=== PATIENT | male | born 1980 | race African-American/Black ===

== ENCOUNTER 2025-08-02 11:27 | Emergency (ER) | payer OTHER, SELFPAY ==
[~2025-08-02] VITALS: Ht 177.8 cm; Wt 63.9 kg
[2025-08-02 11:29] VITALS: BP 111/76; TEMP 98.5; O2SAT 98
[2025-08-02 16:18] LABS: AMPHETAMINES LEVEL URINE NEGATIVE (NEGATIVE); BARBITURATES URINE NEGATIVE (NEGATIVE); BENZODIAZEPINES URINE NEGATIVE (NEGATIVE); CANNABINOIDS URINE NEGATIVE (NEGATIVE); COCAINE METABOLITE URINE NEGATIVE (NEGATIVE); METHADONE URINE NEGATIVE (NEGATIVE); OPIATES URINE NEGATIVE (NEGATIVE); PHENCYCLIDINE URINE NEGATIVE (NEGATIVE)
== END 2025-08-02 16:42 | disposition left against medical advice (07) ==
LOC: M ED 11:27
DX: K62.89 Other specified diseases of anus and rectum (principal); F90.9 Attention-deficit hyperactivity disorder, unspecified type; Z53.9 Procedure and treatment not carried out, unspecified reason

== ENCOUNTER 2025-08-02 17:15 | Inpatient (IN) | payer OTHER, SELFPAY ==
[~2025-08-02] VITALS: Ht 177.8 cm; Wt 64.0 kg
[2025-08-02 18:05] LABS: PLATELET COUNT, AUTOMATED 297 10^3/uL (150-450)
[2025-08-02 18:24] LABS: AMPHETAMINES LEVEL URINE NEGATIVE (NEGATIVE); BARBITURATES URINE NEGATIVE (NEGATIVE); BENZODIAZEPINES URINE NEGATIVE (NEGATIVE); CANNABINOIDS URINE NEGATIVE (NEGATIVE); COCAINE METABOLITE URINE NEGATIVE (NEGATIVE); METHADONE URINE NEGATIVE (NEGATIVE); OPIATES URINE NEGATIVE (NEGATIVE); PHENCYCLIDINE URINE NEGATIVE (NEGATIVE)
[2025-08-02 18:28] LABS: ALT/SGPT 99 U/L (7.0-40); AST/SGOT 44 U/L (<34); CALCIUM LEVEL 8.8 MG/DL (8.5-10.1); CARBON DIOXIDE LEVEL 28 MMOL/L (20-31); CHLORIDE LEVEL 103 MMOL/L (98-107); CREATININE FOR GFR 0.83 MG/DL (0.70-1.30); GLOMERULAR FILTRATION RATE > 90.0 (>60); POTASSIUM SERUM 3.9 MMOL/L (3.5-5.1); SALICYLATE LEVEL < 3.0 MG/DL (<30); SODIUM LEVEL 140 MMOL/L (136-145)
[2025-08-02 18:30] LABS: ETHYL ALCOHOL (ETHANOL) 0.003 % (0.000-0.010)
[2025-08-02 18:32] LABS: KETONE, URINE AUTO RFX TRACE mg/dL (NEGATIVE); LEUKOCYTE ESTERASE UR AUTO RFX NEGATIVE (NEGATIVE); MUCUS, URINE RFX LARGE (NEGATIVE); RBC, URINE AUTO RFX 1 /HPF (0-3); SQUAM EPITHELIAL CELL UR AURFX 0 /HPF (0-6); WBC, URINE AUTO RFX 1 /HPF (0-3)
[2025-08-02 18:40] LABS: NITRITE, URINE AUTO RFX POSITIVE (NEGATIVE)
[2025-08-03] MEDS ORDERED: ACETAMINOPHEN 325 MG TAB PO PRN
[2025-08-03] MEDS ORDERED: IBUPROFEN 400 MG TAB PO PRN
[2025-08-03] MEDS ORDERED: MAALOX 30 ML SUSP *UDC PO PRN
[2025-08-03] MEDS ORDERED: MOM 30 ML SUSPENSION UDC PO PRN
[2025-08-03 02:54] VITALS: BP 105/55; TEMP 98.4; O2SAT 96
[2025-08-03 06:46] VITALS: BP 98/65; TEMP 98; O2SAT 98
[2025-08-03 14:57] VITALS: BP 117/62; TEMP 98; O2SAT 100
[2025-08-03] MEDS: NICOTINE 21 MG/24 HR 1 EA TRANSDERMAL TD SCH (15:40)
[2025-08-03] MEDS ORDERED: HOME MED LIST COMPLETE! XX SCH (16:15)
[2025-08-03] MEDS: HALOPERIDOL 5 MG TAB PO PRN (20:42)
[2025-08-03] MEDS: traZODone 50 MG TAB PO PRN (20:42)
[2025-08-04 06:00] VITALS: BP 97/56; TEMP 98.3; O2SAT 100
[2025-08-04 15:17] VITALS: BP 119/67; TEMP 99.5; O2SAT 99
[2025-08-05 06:36] VITALS: BP 117/60; TEMP 98.5; O2SAT 98
== END 2025-08-05 12:36 | disposition home or self-care (01) | DRG 751 ==
LOC: M ED 17:15 → M ED INP 08-03 → M PSY 08-03 02:37
PROVIDERS: ADMIT Student in an Organized Health Care Education/Training Program; ATTEND Psychiatry & Neurology Psychiatry
DX: F29 Unspecified psychosis not due to a substance or known physiological condition (principal); F20.9 Schizophrenia, unspecified; Z59.02 Unsheltered homelessness; R74.01 Elevation of levels of liver transaminase levels; Z56.0 Unemployment, unspecified; F31.9 Bipolar disorder, unspecified